=== PATIENT | female | born 1940 | race Caucasian/White ===

== ENCOUNTER 2020-07-28 09:03 | Day surgery (SDC) | payer OTHER ==
[~2020-07-28 09:03] MED LIST: ATEN25; ATENOLOL; Aspir 8181 MG PO; CYCL10 PO; DIGO.25 PO; HYDCHL25; LEVSOD75 PO; LISI5; NAPR550 PO; OXYACE5T PO
== END 2020-07-28 22:46 | disposition home or self-care (01) ==
LOC: MOI US 09:03
DX: C50.912 Malignant neoplasm of unspecified site of left female breast (principal); Z17.0 Estrogen receptor positive status [ER+]
CPT/HCPCS: 19083; 77065; 88305; 88342; 88360; A4648

== ENCOUNTER 2020-08-15 09:57 | Day surgery (SDC) | payer OTHER ==
[~2020-08-15] VITALS: Ht 167.6 cm; Wt 107.7 kg
[~2020-08-15 09:57] MED LIST changes: +ATENOLOL25 MG PO; +CITA20 PO; +DIGOXIN0.125 MG/1 PO; +HYDCHL25 PO; +Isosorbide Mono30 MG PO; +LEVO-T100 MC1 PO; +LORA.5 PO; +TERB250 PO
--- NOTE | 2020-08-15 15:59 | NUR ---
Ambulatory in Day Surgery Surgical site prepped with 2% Chlorhexidine cloth wipe. History, Chart, Medications and Allergies reviewed before start of procedure. Lungs clear T/O to Auscultation. Pre-Op teaching done. Pt verbalizes understanding. Patient States Post-Procedure ride home has been arranged.
--- NOTE | 2020-08-15 20:13 | NUR ---
PT ARRIVED TO ROOM 213 AT 1999. VSS. DENIES N/V AT THIS TIME. A/O X4. PT EAGER TO GO HOME TO NIGHT. PT IN BED AT THIS TIME. DRESSINGS CDI. BREAST BINDER ON.
--- NOTE | 2020-08-15 20:20 | NUR ---
PER [employer], PT OKAY TO DISCHARGE AFTER RECOVERY TONIGHT.
[2020-08-15] MEDS ORDERED: Norco 5-325 Ta1 EACH PO (20:21)
--- NOTE | 2020-08-15 21:59 | NUR ---
DISCHARGE PT DC'D WNL. TOLERATING PO INTAKE, VOIDING, AND AMBULATING. IV REMOVED WNL. INSTRUCTIONS GIVEN, PT STATES UNDERSTANDING. PT ASSISTED WITH DRESSING. PERSONAL BELONGINGS SENT WITH PT. PT GIVEN WHEELCHAIR RIDE TO LEAVE; RIDING WITH FRIEND HOME. LEFT FLOOR AT 2100. PT REPORTS NO FURTHER QUESTIONS OR CONCERNS.
== END 2020-08-15 21:05 | disposition home or self-care (01) ==
LOC: ORSCMMR 09:57 → NM 09:57 → ORSCMMR 09:58 → NM 11:00 → ORSCMMR 20:03 → SURS 20:03 → ORSCMMR 21:05 → SURS 21:05 → NM 21:05
PROVIDERS: Surgery
PROC: 07B60ZX Excision of Left Axillary Lymphatic, Open Approach, Diagnostic (ICD-10-PCS; principal; 2020-08-15 15:30)
PROC: 0HBU0ZZ Excision of Left Breast, Open Approach (ICD-10-PCS; principal; 2020-08-15 15:30)
DX: C50.212 Malignant neoplasm of upper-inner quadrant of left female breast (principal); C77.3 Secondary and unspecified malignant neoplasm of axilla and upper limb lymph nodes; Z17.0 Estrogen receptor positive status [ER+]; I10 Essential (primary) hypertension; I48.91 Unspecified atrial fibrillation; E03.9 Hypothyroidism, unspecified; Z79.899 Other long term (current) drug therapy; E66.01 Morbid (severe) obesity due to excess calories; Z68.38 Body mass index [BMI] 38.0-38.9, adult
CPT/HCPCS: 38792; 88307; A9270-GY; A9520; J0690; J1100; J2370; J2405; J2704; J3010; J7120; Q9968

== ENCOUNTER 2021-07-30 16:18 | Inpatient (IN) | payer OTHER ==
[~2021-07-30] VITALS: Ht 172.7 cm; Wt 101.5 kg
[~2021-07-30 16:18] MED LIST changes: +LEVO T PO; -LEVO-T100 MC1 PO; +Norco 5-325 Ta1 EACH PO
[2021-07-30 17:02] LABS: BASOPHILS ABSOLUTE AUTO 0.09 K/mm3 (0.00-0.23); BASOPHILS PERCENT AUTO 1 % (0-2); EOSINOPHILS ABSOLUTE AUTO 0.19 K/mm3 (0.00-0.68); EOSINOPHILS PERCENT AUTO 2 % (0-6); Hematocrit 47.3 % (33.0-51.0); IMMATURE GRAN ABSOLUTE AUTO 0.09 K/mm3 (0.00-0.10); IMMATURE GRAN PERCENT AUTO 1 % (0-1); LYMPHOCYTES ABSOLUTE AUTO 2.56 K/mm3 (0.84-5.20); LYMPHOCYTES PERCENT AUTO 22 % (21-46); MONOCYTES ABSOLUTE AUTO 1.25 K/mm3 (0.16-1.47); MONOCYTES PERCENT AUTO 11 % (4-13); Mean Corpuscular HGB 28.5 pg (26.0-34.0); Mean Corpuscular HGB Conc 31.7 g/dL (31.5-36.5); Mean Corpuscular Volume 90 fL (80-100); Mean Platelet Volume 10.7 fL (9.1-12.4); NEUTROPHILS PERCENT AUTO 64 % (41-73); Platelet Count 370 K/mm3 (150-400); RDW Coefficient Variation 13.4 % (11.7-14.2); RDW Standard Deviation 43.9 fL (35.1-46.3); Red Blood Cell Count 5.27 M/mm3 (3.80-5.20); White Blood Cell Count 11.58 K/mm3 (4.00-11.30)
[2021-07-30 17:17] LABS: Alanine Aminotransfer (ALT/SGP 25 U/L (12-78); Albumin, Blood 3.4 g/dL (3.4-5.0); Albumin/Globulin Ratio 0.9 (0.8-1.8); Alk Phos 50 U/L (50-136); Anion Gap 7 mmol/L (6-16); Aspartate Aminotrans (AST/SGOT 23 U/L (12-37); Bilirubin, Total 0.3 mg/dL (0.1-1.0); Blood Urea Nitrogen 19 mg/dL (8-24); Bun/Creatinine Ratio 20.9 (12.0-20.0); CO2, Blood 26 mmol/L (21-32); Calcium, Blood 9.3 mg/dL (8.5-10.1); Chloride, Blood 102 mmol/L (98-108); Creatinine, Blood 0.91 mg/dL (0.40-1.00); Ethanol (Alcohol), Blood, Med <3 mg/dL; Globulin, Blood 3.8 g/dL (2.2-4.0); Glomerular Filtration Rate 59 (60-); Glucose, Blood 127 mg/dL (70-99); Potassium, Blood 3.7 mmol/L (3.5-5.5); Sodium, Blood 135 mmol/L (136-145); Total Protein, Blood 7.2 g/dL (6.4-8.2)
[2021-07-30 17:20] LABS: Source, Urine Clean Catch
[2021-07-30 17:24] LABS: International Normalized Ratio 1.12; Prothrombin Time Results 11.7 Sec (9.7-11.5)
[2021-07-30 17:30] LABS: Appearance, Urine Clear (Clear); Bilirubin, Urine Neg (Neg); Blood, Urine 4+ (Neg); Color, Urine Yellow (P-Yellow); Glucose Qualitative, Urine Neg (Neg); Ketones, Urine Neg (Neg); Leukocyte Esterase, Urine 2+ (Neg); Nitrite, Urine Neg (Neg); Protein, Urine 2+ (Neg); Urobilinogen, Urine NORM (Normal)
[2021-07-30 17:51] LABS: Bacteria Few /hpf; Squamous Epithelial Cells Few /hpf (Few)
[2021-07-30 17:52] LABS: Transitional Epithelial Cells Few /hpf (0-Rare)
[2021-07-30 17:59] LABS: U Amphetamine Screen Not Detected; U Barbituate Screen Not Detected; U Benzodiazapine Screen Not Detected; U Cannabinoids Screen Not Detected; U Cocaine Screen Not Detected; U Methadone Screen Not Detected; U Methamphetamine Screen Not Detected; U Opiates Screen Not Detected; U Phencyclidine Screen Not Detected
[2021-07-30 18:00] LABS: U Buprenorphine Screen Not Detected; U Oxycodone Screen Not Detected; U Propoxyphene Screen Not Detected
[2021-07-30 19:31] LABS: CHOL/HDL RATIO 4.6; Cholesterol 181 mg/dL (50-200); HDL Cholesterol 39 mg/dL (>39); LDL/HDL RATIO 2.8; Low Density Lipoprotein Chol 109 mg/dL (0-110); Triglycerides 165 mg/dL (30-160); Very Low Density Lipoprot Chol 33 mg/dL (6-32)
[2021-07-30 19:50] LABS: Influenza A, PCR NEGATIVE (NEGATIVE); Influenza B, PCR NEGATIVE (NEGATIVE); Resp Syncytial Virus, PCR NEGATIVE (NEGATIVE); SARS-Cov-2 (COVID-19) PCR, MMC NEGATIVE (NEGATIVE)
--- NOTE | 2021-07-31 02:18 | NUR ---
This 81 year old female patient arrived from the ED via gurney. The pt. had an acute left ischemic stroke. She had c/o of dizzness, visual deficits, and decreased LOC. She has had a generalized weakness, but no one-sided deficits. She is a two person to the [facility]. She did have c/o of urine frequency and received rocephin. She is saline locked with a 20 guage in her right AC. She does have a hx of chronic afib and bilateral knee replace, but does not use any assitive device at baseline. At the same time her memory recall is very poor at this time. Pt. was oriented to room & call light system.
--- NOTE | 2021-07-31 05:27 | NUR ---
A/O X2-3. PT. ARRIVED VIA EMS FROM HOME (ALONE) CONFUSED AND HAVING VISUAL DEFICITS IN RT. EYE. GENERALLY WEAK BUT NO LEFT/RIGHT SIDED DEFICITS. CONFUSED AND REPETIOUS IN CONVERSATION. 2 PA/GAIT TO BSC. ON TELEMETRY. NO C/O OF PAIN. HX OF CHRONIC AFIB, BL KNEE REPLACEMENT, HTN. PT REMAIN CALM AND RESTING COMFORTABLY, WE'LL CONTINUE TO MONITOR.
[2021-07-31] MEDS ORDERED: AMLO5 PO (08:39)
[2021-07-31] MEDS ORDERED: DILTIAZEM 24HR180 M3 PO (08:41)
[2021-07-31] MEDS ORDERED: SYNTHROID125 MC1 PO (08:41)
[2021-07-31] MEDS ORDERED: CALCIUM 500 MG1 EAC2 PO (08:42)
[2021-07-31 08:56] LABS: CHOL/HDL RATIO 4.8; Cholesterol 177 mg/dL (50-200); HDL Cholesterol 37 mg/dL (>39); Low Density Lipoprotein Chol 109 mg/dL (0-110); Triglycerides 154 mg/dL (30-160); Very Low Density Lipoprot Chol 30 mg/dL (6-32)
--- NOTE | 2021-07-31 16:23 | NUR ---
SHIFT SUMMARY PATIENT IS ALERT AND ORIENTED X3 WITH MILD CONFUSION AT TIMES. PLEASANT AND COOPERATIVE WITH CARE. THE PATIENT IS ON RA, ON TELE RUNNING AFIB IN THE 80'S. 2 PERSON MAX UP TO THE BSC. PATIENT WILL CALL TO MAKE NEEDS KNOWN. BED IN LOWEST POSITION, BED ALARM ON. CALL LIGHT WITHIN REACH. VSS. NO ACUTE CHANGES THIS SHIFT. THIS NURSE WILL CONTINUE TO CARE FOR THE PATIENT UNTIL SHIFT CHANGE REPORT IS GIVEN TO ONCOMING NURSE.
--- NOTE | 2021-08-01 12:51 | NUR ---
PATIENT WAS GIVEN CEPHALEXIN AT 1200 THIS SHIFT. PATIENT HAD A PENICILLIN REACTION A CHILD. DOCTOR WAS NOTIFIED PRIOR TO GIVING MEDICATION. WILL MONITOR PATIENT AND CALL THE DOCTOR IF ANY SIGNS OR SYMPTOMS ARISE.
--- NOTE | 2021-08-01 16:38 | NUR ---
SHIFTS SUMMARY PATIENT IS ALERT AND ORIENTED X3, MILD CONFUSION AT TIMES. PATIENT IS PLEASANT AND COOPERATIVE. THE PATIENT WORKED WITH PHYSICAL THERAPY THIS SHIFT. 1 PERSON SBA TO THE BATHROOM. ABX STARTED THIS SHIFT. NO ACUTE CHANGES. PATIENT IS RESTING IN BED. THIS NURSE WILL CONTINUE TO CARE FOR THE PATIENT UNTIL SHIFT REPORT IS GIVEN TO ONCOMING NURSE.
--- NOTE | 2021-08-02 05:37 | NUR ---
PT RESTED WELL THROUGHOUT NIGHT. REMAINS ON CARDIAC TELEMETRY, A-FIB, HR IN THE 70s, VERIFIED WITH HOME OFFICE REPRESENTATIVE. REMAINS X1 ASSIST WITH WALKER TO BATHROOM. PT STILL HAVING FREQUENT PERIODS OF FORGETFULNESS BUT HAS REMEMBERED TO USE CALL LIGHT FOR ASSISTANCE. RECEIVED SCHEDULED EVENING MEDICATIONS ORDERED. ASPIRATION AND DYSPHAGIA PRECAUTIONS MAINTAINED. VSS. BED REMAINS IN LOW POSITION WITH THE CALL LIGHT WITHIN EASY REACH. BED ALARM ACTIVATED.
--- NOTE | 2021-08-02 16:36 | NUR ---
SHIFT SUMMARY PATIENT ALERT AND ORIENTED X3, UNSURE OF THE YEAR. PLEASANT AND COOPERATIVE WITH CARE. THE PATIENT HAS BEEN STRUGGLING WITH RECALLING EVENTS FROM THE PAST. WORD FINDING CAN BIG DIFFICULT AT TIMES. THE PATIENT HAS BEEN UP 1 PERSON SBA WITH FWW TO THE BATHROOM. PATIENT WILL CALL TO MAKE NEEDS KNOWN. ON TELE, AFIB W/ PVC'S IN THE 70'S. RA. BED ALARM/CHAIR ALARM APPLIED. NO COMPLAINTS OF DISCOMFORT NOTED. VSS. CALL LIGHT WITHIN REACH. THIS NURSE WILL CONTINUE TO CARE FOR THE PATIENT UNTIL SHIFT REPORT IS GIVEN TO ONCOMING NURSE.
--- NOTE | 2021-08-03 06:50 | NUR ---
PT WAS A/O X2, VITAL SIGNS WHERE STABLE, NO ACUTE CHANGES, PATIENT ONLY CALLED FOR ASSISTANCE TO THE RESTROOM.
--- NOTE | 2021-08-03 08:00 | NUR ---
pt laying in bed awake a/ox3, plesant and cooperative with care, follows commands well, denies pain, she reports her only complaint is her eyes aren't working together, she needs to close one eye to read what is on the board, lungs are clear t/o, resp even and unlabored, on r/a, no cough noted, hrirr, tele in place running afib per montior see strip, no juany an noted, ppp+1, cap refill< 3sec, vs stable, afebrile, iv is s.l to rac, site is clear and patent, btx4, abd flat soft nontender, voids without diff, skin c/w/d, maew, nicolle, call light in reach.
[2021-08-03] MEDS ORDERED: ATOR40TA PO (14:19)
[2021-08-03] MEDS ORDERED: ASPI81CH PO (14:19)
[2021-08-03] MEDS ORDERED: Acetaminophen325 M1 PO (14:19)
[2021-08-03] MEDS ORDERED: CEPH500 PO (14:20)
[2021-08-03] MEDS ORDERED: DOCU100 PO (14:20)
[2021-08-03] MEDS ORDERED: DULCOLAX400 MG/5 M PO (14:21)
[2021-08-03] MEDS ORDERED: ELIQUIS5 M2 PO (14:22)
[2021-08-03 15:05] LABS: Influenza A, PCR NEGATIVE (NEGATIVE); Influenza B, PCR NEGATIVE (NEGATIVE); Resp Syncytial Virus, PCR NEGATIVE (NEGATIVE); SARS-Cov-2 (COVID-19) PCR, MMC NEGATIVE (NEGATIVE)
--- NOTE | 2021-08-03 17:00 | NUR ---
PT HAS BEEN [facility]ED [facility] REPORT WAS GIVEN TO NILE BROWER REMOVED INTACT, LEFT VIA WHEELCHAIR WITH TRANSPORT WITH ALL BELONGINGS.
== END 2021-08-03 18:15 | DRG 64 ==
LOC: ER 16:18 → MEDS 16:19
PROVIDERS: Emergency Medicine; Family Medicine; ADMIT Internal Medicine
DX: I63.532 Cerebral infarction due to unspecified occlusion or stenosis of left posterior cerebral artery (principal); G93.6 Cerebral edema; N39.0 Urinary tract infection, site not specified; I48.20 Chronic atrial fibrillation, unspecified; Z20.822 Contact with and (suspected) exposure to COVID-19; Z23 Encounter for immunization; I10 Essential (primary) hypertension; R31.9 Hematuria, unspecified; Z96.653 Presence of artificial knee joint, bilateral; H53.461 Homonymous bilateral field defects, right side; Z85.3 Personal history of malignant neoplasm of breast; Z88.0 Allergy status to penicillin; Z91.040 Latex allergy status; Z88.4 Allergy status to anesthetic agent; Z90.12 Acquired absence of left breast and nipple; Z79.899 Other long term (current) drug therapy
CPT/HCPCS: 0241U; 36415; 70450; 70496; 70498; 80053; 80061; 81001; 85025; 85520; 85610; 90686; 92610; 93005; 93010; 93306; 96365; 97110; 97112; 97116; 97129; 97162; 97166; 97530; 97535; 99285-25; A9270; G0008; G0378; G0480; J0696; J1650; Q9967

== ENCOUNTER 2023-08-13 14:49 | Emergency (ER) | payer OTHER ==
[~2023-08-13] VITALS: Ht 167.6 cm; Wt 90.7 kg
[~2023-08-13 14:49] MED LIST changes: +AMLO5 PO; +ANASTROZOLE1 M7 PO; +ARIMIDEX1 M2 PO; +ASPI81CH PO; +ATOR40TA PO; +Acetaminophen325 M1 PO; +CALCIUM 500 MG1 EAC2 PO; +CEFD300 PO; +CEPH500 PO; +DILTIAZEM 24HR180 M3 PO; +DOCU100 PO; +DULCOLAX400 MG/5 M PO; +ELIQUIS5 M2 PO; +SYNTHROID125 MC1 PO; +VISBIOME 112.51 EACH PO; +VITAMIN D325 MC3 PO
[2023-08-13 15:13] LABS: BASOPHILS ABSOLUTE AUTO 0.05 K/mm3 (0.00-0.23); BASOPHILS PERCENT AUTO 1 % (0-2); EOSINOPHILS ABSOLUTE AUTO 0.31 K/mm3 (0.00-0.68); EOSINOPHILS PERCENT AUTO 3 % (0-6); Hematocrit 49.3 % (33.0-51.0); Hemoglobin 15.8 g/dL (11.5-16.0); IMMATURE GRAN ABSOLUTE AUTO 0.05 K/mm3 (0.00-0.10); IMMATURE GRAN PERCENT AUTO 1 % (0-1); LYMPHOCYTES ABSOLUTE AUTO 1.33 K/mm3 (0.84-5.20); LYMPHOCYTES PERCENT AUTO 13 % (21-46); MONOCYTES ABSOLUTE AUTO 0.88 K/mm3 (0.16-1.47); MONOCYTES PERCENT AUTO 9 % (4-13); Mean Corpuscular HGB 29.9 pg (26.0-34.0); Mean Corpuscular Volume 93 fL (80-100); Mean Platelet Volume 10.2 fL (9.1-12.4); NEUTROPHILS ABSOLUTE AUTO 7.27 K/mm3 (1.96-9.15); NEUTROPHILS PERCENT AUTO 74 % (41-73); Platelet Count 366 K/mm3 (150-400); RDW Coefficient Variation 12.7 % (11.7-14.2); RDW Standard Deviation 43.4 fL (35.1-46.3); Red Blood Cell Count 5.28 M/mm3 (3.80-5.20); White Blood Cell Count 9.89 K/mm3 (4.00-11.30)
[2023-08-13 15:32] LABS: Albumin, Blood 3.3 g/dL (3.4-5.0); Albumin/Globulin Ratio 0.7 (0.8-1.8); Bilirubin, Total 0.5 mg/dL (0.1-1.0); Calcium, Blood 9.6 mg/dL (8.5-10.1); Creatinine, Blood 1.04 mg/dL (0.40-1.00); Globulin, Blood 4.6 g/dL (2.2-4.0); Potassium, Blood 3.9 mmol/L (3.5-5.5); Total Protein, Blood 7.9 g/dL (6.4-8.2)
[2023-08-13 17:13] LABS: International Normalized Ratio 1.1; Prothrombin Time Results 11.5 Sec (9.7-11.5)
[2023-08-13 18:00] VITALS: BP 149/82
== END 2023-08-13 18:20 | disposition short-term general hospital (02) ==
LOC: ER 14:49
PROVIDERS: Emergency Medicine
DX: I70.201 Unspecified atherosclerosis of native arteries of extremities, right leg (principal); I48.91 Unspecified atrial fibrillation; I10 Essential (primary) hypertension; E03.9 Hypothyroidism, unspecified; Z86.73 Personal history of transient ischemic attack (TIA), and cerebral infarction without residual deficits; Z79.01 Long term (current) use of anticoagulants; Z79.899 Other long term (current) drug therapy; Z88.0 Allergy status to penicillin; Z88.4 Allergy status to anesthetic agent; Z91.040 Latex allergy status
CPT/HCPCS: 80053; 85025; 85520; 85610; 85730; 93005; 93010; 93926; 93971; 96374; 99285-25; J1644

== ENCOUNTER 2024-11-12 07:04 | Observation (INO) | payer OTHER ==
[~2024-11-12] VITALS: Ht 167.6 cm; Wt 98.0 kg
[2024-11-12] VITALS (30 sets, daily range): BP systolic 65–144; BP diastolic 44–100
[2024-11-12] MEDS ORDERED: Heparin Sodium 1000 Units/ML 10ML MDV ONE ×3 (07:33→10:52)
[2024-11-12] MEDS ORDERED: NS 500 ML IV ONE ×2 (07:33→10:50)
[2024-11-12] MEDS ORDERED: NS 1,000 ML IV ONE ×3 (07:33→13:16)
[2024-11-12] MEDS ORDERED: Nitroglycerin 2 MG/20 ML BTL ONE (07:34)
[2024-11-12] MEDS ORDERED: Midazolam HCl 1MG / ML 2ML Vial ONE (07:42)
[2024-11-12] MEDS ORDERED: FentaNYL Citrate 50 MCG/ML 2 ML Injection ONE (07:43)
[2024-11-12] MEDS ORDERED: Aspirin 81 MG Chew ONE (11:07)
[2024-11-12] MEDS ORDERED: Clopidogrel Bisulfate 300 MG Cap ONE (11:07)
[2024-11-12] MEDS ORDERED: HydrALAZINE HCl 20 MG / ML 1ML Vial ONE (11:47)
[2024-11-12] MEDS ORDERED: Protamine Sulfate 50 MG Amp ONE (12:05)
[2024-11-12] MEDS ORDERED: Phenylephrine HCl 100 MCG/ML-NS 10MLSYR (1MG/10ML) ONE ×2 (12:26→13:21)
--- NOTE | 2024-11-12 12:58 | NUR ---
pt back to recovery from lab. pt a&o. irene put in place by shira ledesma. repeat v/s.
--- NOTE | 2024-11-12 13:03 | NUR ---
bilat pt pulses found via doppler. r dp pulse absent. left dp found via doppler.
--- NOTE | 2024-11-12 13:11 | NUR ---
pts son and [id number] at bedside. pt given another blanket per request.
--- NOTE | 2024-11-12 13:12 | NUR ---
groin site soft and non-tender per pt. no bleeding noted.
[2024-11-12] MEDS ORDERED: Atropine Sulfate 0.1 MG/ML 10ML SYR ONE (13:20)
--- NOTE | 2024-11-12 14:01 | NUR ---
pt found to be hypotensive and bradycardic. dr valentine at bedside. ct ordered. pt taken to ct. pt now back in recovery. pt to be admitted for over night obs. admitting dr at bedside.
--- NOTE | 2024-11-12 14:05 | NUR ---
groin site soft and non-tender epr pt. no bleeding noted. pt pulse still present in r foot.
[2024-11-12] MEDS ORDERED: CLOP75 PO (14:06)
[2024-11-12] MEDS ORDERED: FLU VACC TS2024-25(6MOS UP)/PF 45 MCG/0.5 ML SYRINGE IM SCH (14:15)
--- NOTE | 2024-11-12 15:07 | NUR ---
PT REPORT CALLED TO [employer]. PT TRANSPORTED TO ICU VIA GURNEY. GROIN SITE SOFT ADN NON-TENDER PER PT. NO BLEEDING NOTED.
--- NOTE | 2024-11-12 15:16 | NUR ---
DUE TO PT CONTINUOUSLY REPEATING HERSELF AND ASKING THE SAME QUESTIONS MULTIPLE TIMES DR GONZALEZ HAS BEEN ASKED TO PUT IN A KNOTTER HAND CONSULT MARIMAR THE PT HAS ALSO REPORTED TO LIVING ALONE.
--- NOTE | 2024-11-12 17:12 | NUR ---
PT SUMMARY PT IS ALERT AND ORIENTED X4, FOLLOWS COMMANDS, KEEPING THAT RIGHT LEG STRAIGHT AFTER PT HAD THREE STENTS PLACED. PT HEART RATE IS IN A-FIB RATE CONTROLLED IN THE 70s, BLOOD PRESSURE STABLE AT 127/70 MAP OF 87, PT DENIES CHEST PAIN. PT IS ON ROOM AIR SATTING >95%, PT DENIES SHORTNESS OF BREATH. PUREWICK IS IN PLACE. PT HAS PALPABLE PULSES IN ALL EXTREMEITES, THE RIGHT PEDAL PULSE IS DOPPLER STRONG AND PT ALSO HAS STRONG TIBIAL PULSE WITH THE DOPPLER. PT IS PCU STATUS, BLOOD PRESSURES HAVE BEEN STABLE. DR. LIVINGSTON HAS BEEN BEDSIDE TO SEE PT, NO OTHER INTERVENTIONS AT THIS TIME. PLAN OF CARE CONTINUED.
[2024-11-12] MEDS ORDERED: Apixaban 5 MG Tab PO SCH (21:00)
[2024-11-13] VITALS (19 sets, daily range): BP systolic 85–134; BP diastolic 58–90
--- NOTE | 2024-11-13 05:27 | NUR ---
SHIFT SUMMARY PT A/OX4, RESPONDS AND CALLS APPROPRIATLY. BP HAVE REMAINED STABLE T/O THIS SHIFT WITH MAPS > 65. AFIB ON MONITOR W/ HR 60-70'S. DENIES CP/PRESSURE. ON ROOM AIR, SATS > 95%. PT HAS L GROIN ACCESS, DRESSING IS C/D/I, NO HEMATOMA. PT DENIES PAIN T/O SHIFT. PEDAL PULSES FOUND WITH DOPPLER AND MARKED. ALL EXTREMITIES ARE WARM AND PALE. PT HAS REMAINED IN BED R/T BEDREST FROM GROIN SITE. PUREWICK IN PLACE WITH GOOD UOP. FAMILY NOTIFIED ABOUT PTS STATUS. WOUND ON BACK AND REDDESS IN FOLDS OF PANUS PHOTOGRAPHED ON PREBIOUS SHIFT. NO ACUTE EVENTS.
[2024-11-13] MEDS ORDERED: Levothyroxine Sodium 0.125 MG Tab PO SCH (06:00)
[2024-11-13] MEDS ORDERED: Diltiazem HCl 180 MG Cap.CD PO SCH (09:00)
[2024-11-13] MEDS ORDERED: Citalopram Hydrobromide 20 MG Tab PO SCH (09:00)
[2024-11-13] MEDS ORDERED: Atenolol 25 MG Tab PO SCH (09:00)
[2024-11-13] MEDS ORDERED: Anastrozole 1 MG TAB PO SCH (09:00)
[2024-11-13] MEDS ORDERED: Enoxaparin 40 MG/0.4 ML SYR SC SCH (09:00)
[2024-11-13] MEDS ORDERED: Atorvastatin 40 MG Tab PO SCH (09:00)
[2024-11-13] MEDS ORDERED: Clopidogrel Bisulfate 75 MG Tab PO SCH (09:00)
[2024-11-13] MEDS ORDERED: Amlodipine Bes2.5 MG PO (14:16)
[2024-11-13] MEDS ORDERED: DILT120 PO (14:17)
== END 2024-11-13 14:55 | disposition home or self-care (01) ==
LOC: MHTC 07:04 → ICUE 07:06
PROVIDERS: ADMIT Internal Medicine
DX: I73.9 Peripheral vascular disease, unspecified (principal); I95.81 Postprocedural hypotension; I25.10 Atherosclerotic heart disease of native coronary artery without angina pectoris; I48.91 Unspecified atrial fibrillation; E03.9 Hypothyroidism, unspecified; I10 Essential (primary) hypertension; E78.5 Hyperlipidemia, unspecified; Z79.01 Long term (current) use of anticoagulants; Z79.890 Hormone replacement therapy; Z79.899 Other long term (current) drug therapy; Z88.0 Allergy status to penicillin; Z88.4 Allergy status to anesthetic agent; Z91.040 Latex allergy status; Z85.3 Personal history of malignant neoplasm of breast
CPT/HCPCS: 37252; 74174; 76937; 85347; 93306; 93356; 99152; 99153; A9270; C1714; C1725; C1753; C1760; C1769; C1874; C1884; C1887; C1894; G0378; J0360; J0461; J1644; J2250; J2371; J2720; J3010; J7030; J7040; J7050; Q9967